=== PATIENT | female | born 1975 | race Caucasian/White ===

== ENCOUNTER 2017-05-22 17:17 | Emergency (ER) | payer MEDICAID ==
[~2017-05-22] VITALS: Ht 162.6 cm; Wt 90.0 kg
[~2017-05-22 17:17] MED LIST: PREN1COM; PREN1TAB12 PO
[2017-05-22 17:20] VITALS: Ht 162.6 cm; Wt 90.0 kg
[2017-05-22 18:31] LABS: BASOPHIL # 0.1 10^3/ul (0.0-0.1); BASOPHILS % 0.5 % (0.0-2.0); EOSINOPHILS # 0.3 10^3/ul (0.0-0.5); EOSINOPHILS % 2.7 % (0.0-7.0); HEMATOCRIT 39.2 % (37.0-47.0); HEMOGLOBIN 13.4 g/dl (12.0-16.0); LYMPHOCYTES # 2.8 10^3/ul (0.8-2.9); LYMPHOCYTES % 29.1 % (15.0-51.0); MEAN CORPUSCULAR HEMOGLOBIN 29.5 pg (29.0-33.0); MEAN CORPUSCULAR HGB CONC 34.2 g/dl (32.0-37.0); MEAN CORPUSCULAR VOLUME 86.2 fl (82.0-101.0); MEAN PLATELET VOLUME 10.1 fl (7.4-10.4); MONOCYTE # 0.7 10^3/ul (0.3-0.9); MONOCYTES % 7.2 % (0.0-11.0); NEUTROPHIL # 5.8 10^3/ul (1.6-7.5); NEUTROPHILS % 60.1 % (39.0-77.0); PLATELET COUNT 292 10^3/UL (140-415); RED BLOOD COUNT 4.55 10^6/ul (4.20-5.40); RED CELL DISTRIBUTION WIDTH 14.6 % (11.5-14.5); WHITE BLOOD COUNT 9.7 10^3/ul (4.8-10.8)
[2017-05-22] MEDS ORDERED: ACETAMINOPHEN 500 MG TAB PO STA (18:41)
--- NOTE | 2017-05-22 18:50 | RADRPT ---
PROCEDURE: XR Chest. CLINICAL INDICATION: chest pain TECHNIQUE: Single AP view of the chest were obtained COMPARISON: None FINDINGS: The heart and mediastinum are within normal limits. The pulmonary vasculature are unremarkable. The aorta is unremarkable. There is no lung consolidation, pleural effusion or pneumothorax. There i s no acute osseous abnormality. IMPRESSION: No acute disease. RPTAT: AA .Cesar Jefferson MD, Date Time Electronically viewed and signed by .Cesar Jefferson MD, MD on 05/22/2017 18:50 .J/
[2017-05-22 19:05] LABS: ALANINE AMINOTRANSFERASE 32 IU/L (13-69); ALBUMIN 4.5 g/dl (3.3-4.9); ALKALINE PHOSPHATASE 101 IU/L (42-121); ANION GAP 20 (8-16); ASPARTATE AMINO TRANSFERASE 24 IU/L (15-46); BILIRUBIN,INDIRECT 0.1 mg/dl (0-1.1); BILIRUBIN,TOTAL 0.1 mg/dl (0.2-1.3); BLOOD UREA NITROGEN 16 mg/dl (7-20); CALCIUM 9.1 mg/dl (8.4-10.2); CARBON DIOXIDE 28 mmol/L (21-31); CHLORIDE 100 mmol/L (97-110); CREATININE 0.83 mg/dl (0.44-1.00); GLUCOSE 96 mg/dl (70-220); POTASSIUM 4.5 mmol/L (3.5-5.1); SODIUM 143 mmol/L (135-144); TOTAL PROTEIN 7.7 g/dl (6.1-8.1)
[2017-05-22 19:21] LABS: TROPONIN-I < 0.012 ng/ml (0.00-0.12)
[2017-05-22] MEDS ORDERED: NAPR-688 PO (19:23)
[2017-05-22] MEDS ORDERED: CYCL-319 PO (19:26)
--- NOTE | 2017-05-22 20:46 | ERD ---
ER Documentation Chief Complaint Date/Time DATE: 05/22/17 TIME: 20:28 Chief Complaint LEFT SHOULDER PAIN RAD BACK HPI 42 year old female presents the emergency department complaining of left shoulder pain that radiates to the left arm and scapular region for the past 2 weeks. Patient describes the pain as achy, rates 6 out of 10 and describes it as constant. She denies trauma. Patient states that she has chest pain for the past 3 days. She denies any shortness of breath, nausea, vomiting. Denies any trauma associated with this. Patient has tried ibuprofen and Tylenol without any relief. She denies any restricted range of motion due to this pain ROS All systems reviewed and are negative except as per history of present illness. Medications Home Meds Active Scripts Cyclobenzaprine Hcl* (Cyclobenzaprine Hcl*) 10 Mg Tablet, 10 MG PO TID, #20 TAB Prov:FÉLIX CALDWELL PA-C 05/22/17 Naproxen* (Naproxen*) 500 Mg Tablet, 500 MG PO BID, #30 TAB Prov:FÉLIX CALDWELL PA-C 05/22/17 Reported Medications Vit/Fe Fumarate/Fa ( 1-1 Tablet) 1 Tab Tablet, 1 TAB PO DAILY 08/25/12 Prenat Vit Comb.10/Iron/Fa/Dha (Vitafol-Ob+Dha Combo Pack) 1 Udcomb.pkg Combo..pkg 02/24/12 Allergies Allergies: Coded Allergies: No Known Drug Allergy (Verified Allergy, Unknown, 07/29/12) PMhx/Soc History of Surgery: No Anesthesia Reaction: No Hx Neurological Disorder: No Hx Respiratory Disorders: No Hx Cardiac Disorders: No Hx Psychiatric Problems: No Hx Miscellaneous Medical Probl: No Hx Alcohol Use: No Hx Substance Use: No Hx Tobacco Use: No Smoking Status: Never smoker Physical Exam Vitals Vital Signs Date Time Temp Pulse Resp B/P Pulse Ox O2 Delivery O2 Flow Rate FiO2 05/22/17 17:20 98.1 90 18 106/81 99 Physical Exam GENERAL: no acute distress, non-toxic appearing, sitting up in bed HENT: normocephalic/atraumatic EYES: conjunctiva is normal NECK: no noticeable or palpable swelling, no carotid bruits, no JVD CARDIOVASCULAR: RRR, good S1S2, no murmurs or gallops heard PULM: clear to auscultation, no use of accessory muscles, no crackles or wheezes. ABDOMEN: normal bowel sounds, abdomen soft and nontender EXT: no edema, cyanosis or clubbing MUSCULOSKELETAL: Tender palpation of the left shoulder and scapular region. NEURO: alert and oriented SKIN: no rashes, skin warm and dry, no erythematous areas PSYCH: normal mood and mentation, denies suicidal or homicidal ideation and thoughts Result Diagram: 05/22/17181905/22/171819 Results 24 hrs Laboratory Tests Test 05/22/17 18:20 White Blood Count 9.710^3/ul Red Blood Count 4.5510^6/ul Hemoglobin 13.4g/dl Hematocrit 39.2% Mean Corpuscular Volume 86.2fl Mean Corpuscular Hemoglobin 29.5pg Mean Corpuscular Hemoglobin Concent 34.2g/dl Red Cell Distribution Width 14.6% Platelet Count 84109^3/UL Mean Platelet Volume 10.1fl Neutrophils % 60.1% Lymphocytes % 29.1% Monocytes % 7.2% Eosinophils % 2.7% Basophils % 0.5% Nucleated Red Blood Cells % 0.0/100WBC Neutrophils # 5.810^3/ul Lymphocytes # 2.810^3/ul Monocytes # 0.710^3/ul Eosinophils # 0.310^3/ul Basophils # 0.110^3/ul Nucleated Red Blood Cells # 0.010^3/ul Sodium Level 143mmol/L Potassium Level 4.5mmol/L Chloride Level 100mmol/L Carbon Dioxide Level 28mmol/L Anion Gap 20 Blood Urea Nitrogen 16mg/dl Creatinine 0.83mg/dl Glucose Level 96mg/dl Calcium Level 9.1mg/dl Total Bilirubin 0.1mg/dl Direct Bilirubin 0.00mg/dl Indirect Bilirubin 0.1mg/dl Aspartate Amino Transf (AST/SGOT) 24IU/L Alanine Aminotransferase (ALT/SGPT) 32IU/L Alkaline Phosphatase 101IU/L Troponin I < 0.012ng/ml Total Protein 7.7g/dl Albumin 4.5g/dl Globulin 3.20g/dl Albumin/Globulin Ratio 1.40 Current Medications Medications (Trade) Dose Ordered Sig/Tere Route PRN Reason Start Time Stop Time Status Last Admin Dose Admin Acetaminophen (Tylenol Tab) 1,000 mg ONCE STAT PO 05/22/17 18:41 05/22/17 18:43 DC 05/22/17 18:47 Procedures/MDM This is a 42-year-old female presenting to the emergency department complaining of left arm pain, left shoulder pain likely due to cervical radiculopathy and strain. There was no evidence of ACS, fracture or dislocation. On examination patient had full range of motion. EKG was done and did not show any evidence of STEMI. Lab work was done, patient had negative troponins. Chest x-ray was unremarkable for infiltrates, pneumothorax or pleural effusion. Patient was given prescription for naproxen and Flexeril. Patient is hematuria stable and neurovascular intact to be discharged home to follow-up with primary care physician. Discussed return to the ER for any worsening symptoms. She understands and agrees with this plan. Departure Diagnosis: Primary Impression: Shoulder pain Condition: Stable Patient Instructions: Shoulder Problems, Neck Pain, No Trauma, Shoulder Pain ( Uncertain Cause) Referrals: NO PRIMARY,CARE PHYSICIAN (PCP) COMMUNITY CLINICS YOU HAVE RECEIVED A MEDICAL SCREENING EXAM AND THE RESULTS INDICATE THAT YOU DO NOT HAVE A CONDITION THAT REQUIRES URGENT TREATMENT IN THE EMERGENCY DEPARTMENT. FURTHER EVALUATION AND TREATMENT OF YOUR CONDITION CAN WAIT UNTIL YOU ARE SEEN IN YOUR DOCTORS OFFICE WITHIN THE NEXT 1-2 DAYS. IT IS YOUR RESPONSIBILITY TO MAKE AN APPOINTMENT FOR FOLOW-UP CARE. IF YOU HAVE A PRIMARY DOCTOR --you should call your primary doctor and schedule an appointment IF YOU DO NOT HAVE A PRIMARY DOCTOR YOU CAN CALL OUR PHYSICIAN REFERRAL HOTLINE AT IF YOU CAN NOT AFFORD TO SEE A PHYSICIAN YOU CAN CHOSE FROM THE FOLLOWING [facility]MERLY [facility], [facility] [address] [facility]. [facility] [address] [facility] [facility] [address] [facility]. [facility] [address] [facility]. [facility] [address] [facility]. [facility]. [address] Additional Instructions: Visite a blank mdico maana para un EXAMEN.Regrese a estas instalaciones si no se mejora caprice esperbamos o caprice le dijimos. [place] toda la medicina maximo y caprice se le indic. Regrese a estas instalaciones si no se mejora caprice esperbamos o caprice le dijimos. FÉLIX CALDWELL PA-C May 22, 2017 20:43
== END 2017-05-22 19:39 | disposition home or self-care (01) ==
LOC: FTE 17:17
DX: M25.512 Pain in left shoulder (principal); R07.9 Chest pain, unspecified
CPT/HCPCS: 71010; 80053; 84484; 85025; 93005; Z7502; Z7610

== ENCOUNTER 2017-11-21 12:51 | Emergency (ER) | END 2017-11-21 18:53 | disposition home or self-care (01) ==